=== PATIENT | female | born 1985 | race African-American/Black ===

== ENCOUNTER 2019-02-28 08:31 | Outpatient (CLI) | payer OTHER ==
--- NOTE | 2019-02-28 09:52 | ULT ---
OB ULTRASOUND: Date: 02/28/19 HISTORY: Size and dates. FINDINGS: A single, live intrauterine gestation is seen, with measurements corresponding to an estimated gestat ional age of 18 weeks and 3 days, and NATALI at 07/29/2019. Estimated weight measures 221 gm, or 8 oz. This corresponds to a 7th percentile by Hadlock criteria. measurements are as follows: BPD: 4.12 cm, 18 weeks 4 days HC: 15.63 cm, 18 weeks 4 days AC: 12.09 cm, 17 weeks 6 days FL: 2.68 cm, 18 weeks 2 days heart rate measures 153 beats/minute. Amniotic fluid volume appears normal. Placenta is anterio r fundal without placenta previa. Cervical length measures 4.5 cm. Three vessel cord, cord insertion, kidneys, bladder, spine, stomach, four chamber heart, latera l ventricles, cerebellum, lips/nose, upper/lower extremities visualized. No anomalies are seen. Prominent placental richardson is noted. Prominent vascular area is seen in the anterior superior uterus. IMPRESSION: Single, live intrauterine of 18 weeks and 3 days estimated gestational age, and NATALI at 07/15. POS: [facility]
== END 2019-02-28 08:32 | disposition home or self-care (01) ==
LOC: BICULT 08:31
PROVIDERS: ATTEND Family Medicine
DX: O09.292 Supervision of pregnancy with other poor reproductive or obstetric history, second trimester (principal); Z3A.18 18 weeks gestation of pregnancy
CPT/HCPCS: 76805

== ENCOUNTER 2019-04-06 15:31 | Outpatient (CLI) | payer OTHER ==
--- NOTE | 2019-04-06 16:50 | ULT ---
OB ULTRASOUND FOLLOW-UP : 04/06/19 HISTORY: Cervical length. FINDINGS: The cervical length measures 3.3 - 3.6 cm. A single live intrauterine gestation is seen. heart rate measures 150 beats per minute. Placenta is anteriorly located without evidence of placenta prev ia. presentation is transverse. Amniotic fluid appears adequate. IMPRESSION: Cervical length measures between 3.3 and 3.6 cm. POS: [facility]
== END 2019-04-06 15:32 | disposition home or self-care (01) ==
LOC: BICULT 15:31
PROVIDERS: ATTEND Family Medicine
DX: O09.292 Supervision of pregnancy with other poor reproductive or obstetric history, second trimester (principal)
CPT/HCPCS: 76816

== ENCOUNTER 2019-07-05 10:14 | Inpatient (IN) | payer OTHER ==
[2019-07-05] MEDS ORDERED: CEFAZOLIN 2 GM in Premix Bag 1 BAG IVPB SCH (10:52)
[2019-07-05] MEDS ORDERED: hydrALAZINE 20 MG/ML VIAL SLOW IVP PRN ×2 (10:52→15:04)
[2019-07-05] MEDS ORDERED: Azithromycin 500 MG in Sodium Chloride 0.9% 250 ML 250 ML IVPB SCH (10:52)
[2019-07-05] MEDS ORDERED: Ondansetron PF 4 MG/2 ML Vial IVP PRN ×2 (10:52→13:43)
[2019-07-05] MEDS ORDERED: Bicitra 30 ML UDCUP PO SCH (10:52)
[2019-07-05] MEDS ORDERED: Promethazine HCl 25 MG/ML VIAL IM PRN ×3 (10:52→15:04)
[2019-07-05 11:45] VITALS: BMI 40.9
[2019-07-05] MEDS: Lactated Ringer's 1,000 ML IV SCH (11:54)
[2019-07-05 11:57] LABS: Hemoglobin 10.4 g/dL (12.0-16.0); Mean Corpuscular HGB CONC 33.8 g/dL (32.0-36.0); Mean Corpuscular Hemoglobin 29.5 pg (27.0-31.0); Mean Corpuscular Volume 87.3 fL (78.0-98.0); Mean Platelet Volume 7.9 fL (7.4-10.4); Platelet Count 163 thou/uL (130-400); RBC Distribution Width 12.2 % (11.5-14.5); Red Blood Cell (RBC) Count 3.53 mill/uL (4.20-5.40); White Blood Cell (WBC) Count 8.2 thou/uL (4.8-10.8)
[2019-07-05] MEDS ORDERED: MORPHINE 5 MG/10 ML PF VIAL ONE (12:10)
[2019-07-05] MEDS ORDERED: Oxytocin 10 UNITS/ML VIAL ONE (12:11)
[2019-07-05] MEDS ORDERED: Ondansetron PF 4 MG/2 ML Vial ONE ×2 (12:11→14:05)
[2019-07-05 12:31] LABS: Syphilis Antibody Nonreactive (Nonreactive); Syphilis Antibody Index 0.07 S/CO (<1.00 Non-Reactive)
[2019-07-05] MEDS ORDERED: Phenylephrine HCL 10 MG/ML VIAL ONE (12:36)
[2019-07-05 12:38] LABS: Hep B Surf Ag Non-Reactive S/CO (NonReactive)
[2019-07-05] MEDS ORDERED: Carboprost 250 MCG/ML AMP ONE (13:06)
[2019-07-05] MEDS ORDERED: Midazolam HCl 2 mg/2 ml Vial ONE (13:10)
[2019-07-05] MEDS ORDERED: Ketamine 50 MG/ML (10ML VIAL) ONE (13:10)
[2019-07-05] MEDS ORDERED: Naloxone HCl 0.4 mg/ml Vial IVP PRN ×2 (13:43)
[2019-07-05] MEDS ORDERED: Ondansetron HCl/PF 4 MG/2 ML Vial IVP PRN (13:43)
[2019-07-05] MEDS ORDERED: Meperidine HCl/PF 25 MG/ML VIAL SLOW IVP PRN (13:43)
[2019-07-05] MEDS ORDERED: Naloxone HCl 0.4 mg/ml Vial IV PRN (13:43)
[2019-07-05] MEDS ORDERED: HYDROmorphone 2 MG/ML VIAL SLOW IVP PRN (13:43)
[2019-07-05] MEDS ORDERED: L&D-Morphine 4 MG/ML VIAL SLOW IVP PRN (13:43)
[2019-07-05] MEDS ORDERED: Ketorolac Tromethamine 30 MG/ML VIAL IVP PRN (13:43)
[2019-07-05] MEDS ORDERED: Promethazine HCl 25 MG SUPP PR PRN (13:43)
[2019-07-05] MEDS ORDERED: diphenhydrAMINE 50 MG/ML VIAL IVP PRN (13:43)
[2019-07-05] MEDS ORDERED: Ketorolac Tromethamine 30 MG/ML VIAL IVP SCH (13:45)
[2019-07-05] MEDS ORDERED: Communication Order-Pharmacy FS SCH (13:45)
[2019-07-05] MEDS ORDERED: Ketorolac Tromethamine 30 MG/ML VIAL ONE (14:05)
--- NOTE | 2019-07-05 14:19 | PDOC.OP ---
Operative Note - Operative Note Operative Note: Date of Procedure: 07/05/19 Resident Surgeon: Morenita Ashraf MD PGY-2 Attending Surgeon: Dr. Guido Procedure: Repeat low transverse caesarean section Preoperative Diagnosis: 1) Single intrauterine 2) Previous 3) Chronic HTN 4) Gestational DM Postoperative Diagnosis: 1) Single intrauterine 2) Previous 3) Chronic HTN 4) Gestational DM Anesthesia: Spinal Indications: The patient is a 33 year old female at 37.1 weeks gestation who presents for a repeat scheduled . Procedure in Detail: After risks, benefits, and alternatives were explained to the patient, she gave informed consent. Pre-operative antibiotics included Cefazolin 2 gram IV and Azithromycin 500mg IV. The patient was taken to the operating room and spinal anesthesia was initiated. She was placed in the supine position with a left tilt and prepped and draped in usual sterile fashion. A Pfannenstiel incision was made with a scalpel and carried down to the level of the fascia which was sharply nicked. The fascial cut was extended bilaterally with Corcoran sissors. The inferior and superior edges of the cut fascial edges were elevated with Barbara clamps and the underlying rectus muscles were sharply and bluntly dissected free. There were adhesions present. The recti were divided digitally and sharply due to adhesions and retracted. The peritoneum was entered bluntly and retracted manually. Bladder blade was placed. Bladder flap was created. A low transverse score was made with the scalpel and the uterus was entered in the midline with the scalpel. Clear fluid was seen. The hysterotomy was extended manually. The infant was noted to be vertex and was easily delivered by fundal pressure. Mouth and nares were bulb suctioned. Cord clamped and cut and grossly normal male/female was handed to waiting nurse. Cord blood was obtained. Placenta was manually extracted, found to be intact with 3 vessel cord and sent to lab. The uterus was externalized and the endometrium was curetted with a dry lap. Pt received Hemabate 0.25mg. The bladder blade was replaced and the uterus was closed with a running locking #0 Vicryl followed by a running non-locking #0 Vicryl imbricating suture. Following this hemostasis was noted. The abdomen was irrigated with saline and suctioned free of clots. The uterus was internalized and the hysterotomy was again noted to be hemostatic. Surgicel and Seprafilm was placed on the uterus prior to closure of the fascia to maintain hemostasis. The fascia was closed with a running non-locking #0 PDS suture. The subcutaneous tissue was irrigated and closed with 3-0 Vicryl. The skin was approximated with alexander. Pressure dressing was applied. All counts were correct. The patient tolerated the procedure well and was taken to the recovery room in stable condition. QBL: 825ml Complications: None Specimens: Cord blood and placenta sent to lab Findings: Grossly normal male with apgars of 7 and 8. Drains: Cheek to gravity draining clear urine
[2019-07-05] MEDS ORDERED: Meperidine HCl/PF 25 MG/ML VIAL IM PRN (15:04)
[2019-07-05] MEDS ORDERED: Lanolin Ointment 7 GM TUBE TOP PRN (15:04)
[2019-07-05] MEDS ORDERED: NS / Oxytocin 40 units/1000ml 1,000 ML IV SCH (15:04)
[2019-07-05] MEDS ORDERED: diphenhydrAMINE 25 MG CAP PO PRN (15:04)
[2019-07-05] MEDS ORDERED: Simethicone Chewable 80 MG TAB PO PRN (15:04)
[2019-07-05] MEDS ORDERED: Bisacodyl 10 MG SUPP PR PRN (15:04)
[2019-07-05] MEDS: metroNIDAZOLE 500 MG in Premix Bag 1 BAG IVPB SCH (15:21)
[2019-07-05] MEDS ORDERED: Sodium Chloride 0.9% 20 ML ONE (17:50)
[2019-07-05] MEDS: Ondansetron PF 4 MG/2 ML Vial IVP PRN ×2 (17:51→23:09)
[2019-07-05] MEDS: Docusate Calcium (SURFAK) 240 MG CAP PO SCH (21:39)
[2019-07-05] MEDS: CEFAZOLIN 2 GM in Premix Bag 1 BAG IVPB SCH (21:40)
[2019-07-06] MEDS: metroNIDAZOLE 500 MG in Premix Bag 1 BAG IVPB SCH ×4 (00:25→22:30)
[2019-07-06] MEDS: Lactated Ringer's 1,000 ML IV SCH (02:12)
[2019-07-06] MEDS ORDERED: cloNIDine 0.1 MG TAB PO PRN (03:06)
[2019-07-06] MEDS: CEFAZOLIN 2 GM in Premix Bag 1 BAG IVPB SCH ×3 (04:48→20:02)
[2019-07-06 05:49] LABS: Hemoglobin 8.7 g/dL (12.0-16.0); Mean Corpuscular HGB CONC 33.7 g/dL (32.0-36.0); Mean Corpuscular Hemoglobin 29.6 pg (27.0-31.0); Mean Corpuscular Volume 87.8 fL (78.0-98.0); Mean Platelet Volume 7.8 fL (7.4-10.4); Platelet Count 137 thou/uL (130-400); RBC Distribution Width 12.1 % (11.5-14.5); Red Blood Cell (RBC) Count 2.93 mill/uL (4.20-5.40); White Blood Cell (WBC) Count 7.7 thou/uL (4.8-10.8)
[2019-07-06] MEDS: Prenatal Vitamin 1 TAB PO SCH (08:40)
[2019-07-06] MEDS: Docusate Calcium (SURFAK) 240 MG CAP PO SCH ×2 (08:40→20:03)
[2019-07-06] MEDS: HYDROcodone/Acetaminophen 5/325 mg Tablet PO PRN ×3 (08:41→20:04)
[2019-07-06] MEDS ORDERED: Adacel (T-DAP) 0.5 ML SYRINGE IM ONE (09:00)
[2019-07-06] MEDS: Ibuprofen 800 MG TAB PO SCH ×2 (15:04→22:30)
[2019-07-07] MEDS: CEFAZOLIN 2 GM in Premix Bag 1 BAG IVPB SCH ×3 (05:47→19:48)
[2019-07-07] MEDS: Ibuprofen 800 MG TAB PO SCH ×3 (05:47→22:57)
[2019-07-07] MEDS: HYDROcodone/Acetaminophen 5/325 mg Tablet PO PRN ×4 (05:48→18:45)
[2019-07-07] MEDS: metroNIDAZOLE 500 MG in Premix Bag 1 BAG IVPB SCH ×3 (06:41→22:57)
[2019-07-07] MEDS: Docusate Calcium (SURFAK) 240 MG CAP PO SCH ×2 (09:08→22:57)
[2019-07-07] MEDS: Prenatal Vitamin 1 TAB PO SCH (09:08)
[2019-07-07] MEDS ORDERED: Sodium Chloride 0.9% 10 ML ONE (09:42)
[2019-07-08] MEDS: HYDROcodone/Acetaminophen 5/325 mg Tablet PO PRN ×3 (01:23→19:39)
[2019-07-08] MEDS: CEFAZOLIN 2 GM in Premix Bag 1 BAG IVPB SCH ×3 (04:32→13:17)
[2019-07-08] MEDS: metroNIDAZOLE 500 MG in Premix Bag 1 BAG IVPB SCH (06:01)
[2019-07-08] MEDS: Ibuprofen 800 MG TAB PO SCH ×3 (06:02→21:27)
[2019-07-08] MEDS: Prenatal Vitamin 1 TAB PO SCH (08:27)
[2019-07-08] MEDS: Docusate Calcium (SURFAK) 240 MG CAP PO SCH ×2 (08:27→21:28)
[2019-07-08] MEDS ORDERED: NIFEdipine XL 30 MG TAB PO SCH (13:15)
[2019-07-08] MEDS: NIFEdipine XL 30 MG TAB PO SCH ×2 (13:42→13:45)
[2019-07-08] MEDS: Cephalexin 250 MG CAP PO SCH ×2 (14:40→21:28)
[2019-07-08] MEDS: metroNIDAZOLE 500 MG TAB PO SCH ×2 (14:40→21:28)
[2019-07-09] MEDS: HYDROcodone/Acetaminophen 5/325 mg Tablet PO PRN ×2 (00:13→12:30)
[2019-07-09] MEDS: Ibuprofen 800 MG TAB PO SCH ×2 (05:22→13:52)
[2019-07-09 08:19] VITALS: BP 135/74; TEMP 98.1
[2019-07-09] MEDS: Prenatal Vitamin 1 TAB PO SCH (08:45)
[2019-07-09] MEDS: Cephalexin 250 MG CAP PO SCH (08:45)
[2019-07-09] MEDS: metroNIDAZOLE 500 MG TAB PO SCH (08:46)
[2019-07-09] MEDS: Docusate Calcium (SURFAK) 240 MG CAP PO SCH (08:46)
[2019-07-09] MEDS: NIFEdipine XL 30 MG TAB PO SCH (08:49)
--- NOTE | 2019-07-11 08:59 | PQF ---
NEL ASCENCIO ROLAND R MD [id number] [facility] [id number] CLINICAL DOCUMENTATION CLARIFICATION FORM: POST DISCHARGE Addendum to original discharge summary date: ____ Late entry note date: __ DATE: 07-11-2019 ATTN:Sae Mcneil Please exercise your independent, professional judgment in responding to the clarification form. Clinical indicators are provided on the bottom of this form for your review Please check appropriate box(s): [ ] Acute blood loss anemia [ ] Post-op anemia related to acute blood loss [X ] Anemia Unspecified [ ] Other diagnosis please specify [ ] Unable to determine In addition, please specify: Present on Admission (POA): [ X ] Yes [ ] No [ ] Unable to determine For continuity of documentation, please document condition throughout progress notes and discharge summary. Thank You. CLINICAL INDICATORS - SIGNS / SYMPTOMS / LABS Labor/delivery H&P 07/05 - "Anemia" OP Note 07/05 - "QBL:825ml" Laboratory - RBC 07/05:3.53 , 07/06:2.93 Laboratory - Hgb 07/05: 10.4 , 07/06: 8.7 Laboratory - Hct 07/05: 30.8 , 07/06: 25.7 RISK FACTORS OP Note 07/05 - s/p CS OP Note 07/05 - 37.1 weeks gestation TREATMENTS: Labor/delivery H&P 07/05 - Iron supplement MAR - IVF Laboratory - Hematology monitoring (This form is maintained as a part of the permanent medical record) 2014 [employer]. All Rights Reserved Arianne [email or web address] [not provided] [email or web address]
== END 2019-07-09 14:10 | disposition home or self-care (01) | DRG 787 ==
LOC: L&D 10:14 → EDSTATUS 16:23 → 3SE 16:50
PROVIDERS: ADMIT Family Medicine; ATTEND Family Medicine
PROC: 10D00Z1 Extraction of Products of Conception, Low, Open Approach (ICD-10-PCS; principal; 2019-07-05)
DX: O34.211 Maternal care for low transverse scar from previous cesarean delivery (principal); O10.92 Unspecified pre-existing hypertension complicating childbirth; O24.420 Gestational diabetes mellitus in childbirth, diet controlled; Z3A.37 37 weeks gestation of pregnancy; Z37.0 Single live birth; O99.02 Anemia complicating childbirth; D64.9 Anemia, unspecified
CPT/HCPCS: 36415; 51702; 85027; 85461; 86780; 86850; 86900; 86901; 87340; 88307; 90384; 96372; J0456; J0690; J1200; J1885; J2250; J2274; J2370; J2405; J2590; J3490; J7050